=== PATIENT | male | born 1970 | race Hispanic/Latino ===

== ENCOUNTER 2021-02-25 17:18 | Emergency (ER) | payer SELFPAY ==
[2021-02-25 17:29] VITALS: BP 136/76; PULSE 101; RESP 22; TEMP 37.1; O2SAT 100
--- NOTE | 2021-02-25 20:46 | ED.SKABFB ---
HPI - Skin/Abscess/Foreign Bdy General Chief complaint: Skin/Abscess/Foreign Body Stated complaint: PIMPLE ON BUTT AND HAS PUSS Time Seen by Provider: 02/25/21 20:39 Source: patient Mode of arrival: Ambulatory Limitations: language barrier History of Present Illness HPI narrative: Patient is a 50-year-old male. Does understanding list. Translation line was offered however he declined is there was family at bedside the provided translation. He is here for evaluation of pain and tenderness and redness and swelling to his right buttocks. He did drain what appears to be some purulent material recently. He has had worsening symptoms for the past couple days. No fevers. No problems having bowel movements but does have quite a bit of discomfort with sitting. Related Data Previous Rx's Medication Instructions Recorded doxycycline hyclate 100 mg tablet 100 mg PO BID 7 Days #14 tab 02/25/21 Allergies Allergy/AdvReac Type Severity Reaction Status Date / Time No Known Drug Allergies Allergy Verified 02/25/21 17:33 Review of Systems Constitutional Constitutional: Denies fever(s) Gastrointestinal Gastrointestinal: Reports as per HPI and Reports system reviewed and no additional complaints, except as documented Genitourinary Genitourinary: Reports system reviewed and no additional complaints, except as documented Integumentary/Breasts Skin/Breast: Reports system reviewed and no additional complaints, except as documented and Reports as per HPI Hematologic/Lymphatic On Anticoagulants: No Patient History Medical History Healthy adult Social History marital status: lives independently: Yes Exam Initial Vital Signs Initial Vital Signs: Vital Signs Temperature 98.7 F 02/25/21 17:29 Pulse Rate 101 H 02/25/21 17:29 Respiratory Rate 22 02/25/21 17:29 Blood Pressure 136/76 02/25/21 17:29 Pulse Oximetry 100 02/25/21 17:29 Const General: cooperative, healthy appearing and well developed Limitations: mental status not altered GI Other: Discomfort along the right buttocks. Skin Other: Patient has a area of redness consistent with cellulitis on his right buttocks. There is a area of induration that is approximately 8 cm x 5 cm located in his right buttocks with this central area of what appears to be a pustule. Neuro General: patient alert and patient awake Extrem General: normal to inspection and capillary refill normal Psych Appearance: grossly normal and well kempt Procedures Abscess I/D I&D #1: Site: other (Right buttocks) Side (if applicable): right Local Anesthetic: lidocaine 1% and with bicarb Amount of anesthesia used (mL): 8 Technique: incised with #11 blade Irrigation: No Packing used?: none Complications: pain Course Orders Ordered: Discontinued Medications Hydrocodone Bitart/Acetaminophen (Hydrocodone/Acet 5/325 Tablet) 1 tab PO NOW ONE Stop: 02/25/21 21:32 Last Admin: 02/25/21 21:35 Dose: 1 tab Documented by: MAGNOLIA Hydrocodone Bitart/Acetaminophen (Hydrocodone/Acet 5/325 Prepack) 1 bottle MISC SEEINSTR ONE Stop: 02/25/21 21:32 Last Admin: 02/25/21 21:35 Dose: 1 bottle Documented by: MAGNOLIA Doxycycline Hyclate (Doxycycline Hyclate 100 Mg Tablet) 100 mg PO NOW ONE Stop: 02/25/21 21:09 Last Admin: 02/25/21 21:26 Dose: 100 mg Documented by: MAGNOLIA Lidocaine/Sodium Bicarbonate (Lido 1%/Sod Bicarb 8.4% (10ml) 10 Ml Syringe) 10 ml INJ NOW ONE Stop: 02/25/21 20:47 Last Admin: 02/25/21 20:51 Dose: 10 ml Documented by: JARED Vital Signs Vital signs: Vital Signs - 8 hr 02/25/21 21:39 Pulse Rate 78 Respiratory Rate 14 Blood Pressure 132/82 Pulse Oximetry 99 MDM - Skin/Abscess/Foreign Bdy MDM Narrative Medical decision making narrative: Bedside ultrasound does show a abscess. Patient is afebrile. The abscess was drained as described above. There was surrounding redness consistent with cellulitis so will start the patient on antibiotics. He was given care instructions and return precautions. He expressed understanding and agreement with plan. Discharge Plan Departure Patient Disposition: Home Clinical Impression: Abscess of skin or subcutaneous tissue, Cellulitis Instructions: DI for Cellulitis -- Adult, DI for Incision and Drainage of a Skin Abscess Activity Restrictions/Additional Instructions: I would expect the wound to continue to drain over the next 24-48 hours. Just change the bandage as needed. We do need to start you on antibiotics. You were given your 1st dose here in the emergency department and a prescription was sent to [facility]. Contact your primary doctor for follow-up. Return to the emergency department for any new or worsening symptoms Prescriptions: New doxycycline hyclate 100 mg tablet 100 mg PO BID 7 Days Qty: 14 0RF
[2021-02-25] MEDS: LIDO 1%/SOD BICARB 8.4% (10ML) 10 ML SYRINGE INJ (20:51)
[2021-02-25] MEDS: DOXYCYCLINE HYCLATE 100 MG TABLET PO (21:26)
[2021-02-25] MEDS: HYDROCODONE/ACET 5/325 PREPACK 1 BOTTLE MISC (21:35)
[2021-02-25] MEDS: HYDROCODONE/ACET 5/325 TABLET 1 TAB PO (21:35)
[2021-02-25 21:39] VITALS: BP 132/82; PULSE 78; RESP 14; O2SAT 99
== END 2021-02-25 21:41 | disposition home or self-care (01) ==
PROVIDERS: Emergency Provider Emergency Medicine
DX: L02.31 Cutaneous abscess of buttock (principal); L03.317 Cellulitis of buttock
CPT/HCPCS: 10060; 99283; 99284

== ENCOUNTER 2022-10-29 20:49 | Emergency (ER) | payer OTHER, SELFPAY ==
[2022-10-29 21:07] VITALS: BP 118/80; PULSE 92; RESP 16; TEMP 36.8; O2SAT 98
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
[2022-10-29 22:35] VITALS: BP 141/67; PULSE 92; RESP 18; TEMP 36.3; O2SAT 100
[2022-10-30 00:38] VITALS: BP 142/70; PULSE 88; RESP 20; O2SAT 99
[2022-10-30] MEDS: KETOROLAC 30 MG/ML VIAL IM (02:01)
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
== END 2022-10-30 02:28 | disposition home or self-care (01) ==
PROVIDERS: Emergency Provider Emergency Medicine
DX: S16.1XXA Strain of muscle, fascia and tendon at neck level, initial encounter (principal); S20.212A Contusion of left front wall of thorax, initial encounter; R07.81 Pleurodynia; V89.2XXA Person injured in unspecified motor-vehicle accident, traffic, initial encounter
CPT/HCPCS: 71111; 73030; 99283; J1885